=== PATIENT | female | born 1970 | race Caucasian/White ===

== ENCOUNTER 2016-11-16 10:50 | Emergency (ER) | payer SELFPAY ==
[~2016-11-16] VITALS: Ht 170.2 cm; Wt 75.0 kg
[~2016-11-16 10:50] MED LIST: AMOX500T PO; MMW SS
[2016-11-16 10:51] VITALS: BP 113/79; PULSE 140; RESP 24; TEMP 98.1; O2SAT 99
[2016-11-16 11:15] VITALS: PULSE 105
[2016-11-16] MEDS ORDERED: IBUP800T23 PO (12:04)
[2016-11-16] MEDS ORDERED: CEPH500C PO (12:04)
[2016-11-16] MEDS ORDERED: BACT800T5 PO (12:04)
--- NOTE | 2016-11-16 12:08 | PD ---
HPI Chief Complaint: Lump, Cyst, Hernia Time Seen by Provider: 12:02 Travel History International Travel<30 days: No Contact w/Intl Traveler<30days: No Traveled to known affect area: No History of Present Illness HPI 46-year-old female presents emergency Department with complaint of painful lump to her right labia. Last 3-4 days. States she shaved with an old razor and started developing pimple-like bumps to the right labia. Thought they were ingrown hairs and tried opening them up and removing the hair with worsening now to the area. Has taken Advil with no relief of symptoms. Has not taken any other medications or try neither treatments to alleviate her symptoms. Denies fever, vomiting. Denies vaginal discharge, odor, itch, lesions. Denies dysuria. No known allergies. Has no other medical completes. No other modifying factors or associated signs and symptoms. PFSH Past Medical History Hx Anticoagulant Therapy: No Cardiovascular Problems: No Chemotherapy: No Cerebrovascular Accident: No Diabetes: No Diminished Hearing: No Respiratory: No Immunizations Current: No ?: Not LMP: OCTOBER 2016 : 6 Para: 4 Miscarriage: 2 Ovarian Cysts: Yes Dilation and Curettage (D&C): Yes Past Surgical History Gynecologic Surgery: Yes (CYST REMOVAL RIGHT OVARY) Social History Alcohol Use: No Tobacco Use: Yes Substance Use: No Allergies-Medications (Allergen,Severity, Reaction): Coded Allergies: No Known Allergies (Unverified , 08/10/15) Reported Meds & Prescriptions Reported Meds & Active Scripts Active Lortab (Hydrocodone-Acetaminophen) 5-325 Mg Tab 1 Tab PO Q4H PRN Ibuprofen 800 Mg Tab 800 Mg PO Q6HR PRN Cephalexin 500 Mg Cap 500 Mg PO Q6H 10 Days Bactrim DS (Sulfamethoxazole-Trimethoprim) 800-160 Mg Tab 1 Tab PO BID 10 Days Magic Mouthwash-Diphenhy Formula (Lidocaine/Diphenhydr/Alum/Mg/Simeth) Ml 5 Ml SS Q3H PRN MAGIC MOUTHWASH=MIX 1/3 VISCOUS LIDOCAINE(80 ML), 1/3 MAALOX(80 ML),AND 1/3 BENADRYL(80 ML) TO EQUAL 240 ML TOTAL VOLUME. Amoxicillin 500 Mg Cap 500 Mg PO BID 10 Days Review of Systems Except as stated in HPI: all other systems reviewed are Neg Physical Exam Narrative GENERAL: Well-nourished, well-developed female patient, in no acute distress; afebrile, nontoxic-appearing SKIN: There are 3 indurated areas to the right labia which measures about 1-2 cm in diameter. It is fluctuant but there is no pointing or drainage. There is a zone of inflammation around it but no lymphangitis. HEAD: Atraumatic. Normocephalic. EYES: Pupils equal and round. No scleral icterus. No injection or drainage. ENT: Mucosa pink and moist. Airway patent. NECK: Trachea midline. CARDIOVASCULAR: Regular rate. RESPIRATORY: No accessory muscle use. GASTROINTESTINAL: Flat. MUSCULOSKELETAL: No obvious deformities. No clubbing. No cyanosis. No edema. NEUROLOGICAL: Awake and alert. Oriented 3. No obvious cranial nerve deficits. Motor grossly within normal limits. Normal speech. PSYCHIATRIC: Appropriate mood and affect; insight and judgment normal. Data Data Last Documented VS Vital Signs Date Time Temp Pulse Resp B/P Pulse Ox O2 Delivery O2 Flow Rate FiO2 11/16/16 11:15 105 11/16/16 10:51 98.1 24 113/79 99 Room Air Orders Wound Culture And Gram Stain (11/16/16 12:01) Lidocaine 1% Inj (50 Ml) (Xylocaine 1% I (11/16/16 12:15) Oxycodone-Acetamin 5-325 Mg (Percocet (11/16/16 13:15) MDM Medical Decision Making Medical Screen Exam Complete: Yes Emergency Medical Condition: Yes Medical Record Reviewed: Yes Differential Diagnosis Abscess, folliculitis, cellulitis Narrative Course 46-year-old female with 3 small abscesses to her right genital labia. Denies vaginal or urinary symptoms. Denies fever, vomiting. Patient is afebrile and nontoxic-appearing. See my procedure note for incision and drainage of abscess. Lortab administered in the ER. Ibuprofen, Lortab, Keflex, Bactrim prescribed for home. Patient verbalizes understanding and agreement with treatment plan. Patient is medically cleared and stable for discharge. Discussed reasons to return to the emergency department. Instructed patient to follow up with primary care provider. Patient agrees with treatment plan. The patients vital signs are stable and the patient is stable for outpatient follow- up and treatment. Patient discharged home, stable and in no acute distress. Procedures Procedure Narrative INCISION AND DRAINAGE OF ABSCESS: The area was prepped and was sterilely draped. A subcutaneous wheal of 1 % Xylocaine with a total number 0.5 mL was used to anesthetize the areas properly. A number 11 scalpel was used to make a less than 0.5 cm incision across the area of the abscess. The abscess was drained, complex loculations were broken down, and irrigated with normal saline. Cultures were obtained. Sterile dressing applied. Diagnosis Primary Impression: Abscess of right genital labia Referrals: Primary Care Physician Patient Instructions: Abscess (ED), Abscess Follow-up (ED), Abscess Incision and Drainage (ED), General Instructions Departure Forms: Tests/Procedures, Work Release Enter return to work date: November 20, 2016 Additional Instructions: Complete full course of antibiotics Warm compresses to the affected area Keep area clean and dry Ibuprofen or Tylenol as directed and as needed for pain and inflammation Follow-up with primary care provider Return to emergency department immediately with worsening of symptoms Med/Other Pt SpecificInfo: Prescription(s) given Scripts Hydrocodone-Acetaminophen (Lortab)5-325 Mg Tab1 Tab PO Q4H PRN (PAIN GREATER THAN 5) #20 TAB Ref 0 Prov:Padmini Ellsworth MD 11/16/16 Ibuprofen 800 Mg Sab455 Mg PO Q6HR PRN (PAIN) #30 TAB Ref 0 Prov:Beckie Rosales 11/16/16 Cephalexin 500 Mg Xid141 Mg PO Q6H 10 Days Ref 0 Prov:Beckie Rosales 11/16/16 Sulfamethoxazole-Trimethoprim (Bactrim DS)800-160 Mg Tab1 Tab PO BID 10 Days Ref 0 Prov:Beckie Rosales 11/16/16 Disposition: 01 DISCHARGE HOME Condition: Stable Beckie Rosales November 16, 2016 12:08
[2016-11-16] MEDS ORDERED: LIDOCAINE HCL 1% 50 ML VIAL INFIL ONE (12:15)
[2016-11-16] MEDS ORDERED: HYDR-3533 PO (13:02)
[2016-11-16] MEDS ORDERED: oxyCODONE/ACETAMINOPHEN 5 MG/325 MG TAB PO ONE (13:15)
== END 2016-11-16 13:10 | disposition home or self-care (01) ==
LOC: NEPD 10:50
DX: N76.4 Abscess of vulva (principal); B95.62 Methicillin resistant Staphylococcus aureus infection as the cause of diseases classified elsewhere
CPT/HCPCS: 56405; 86403; 87070; 87186

== ENCOUNTER 2017-05-04 13:56 | Emergency (ER) | payer OTHER ==
[~2017-05-04] VITALS: Ht 170.2 cm; Wt 65.0 kg
[~2017-05-04 13:56] MED LIST changes: +BACT800T5 PO; +CEPH500C PO; +HYDR-3533 PO; +IBUP1TAB7 PO
[2017-05-04 13:58] VITALS: BP 166/94; PULSE 106; RESP 14; TEMP 98.2; O2SAT 98
[2017-05-04] MEDS ORDERED: ORPHENADRINE INJ 60 MG/2 ML AMP IM ONE (14:45)
[2017-05-04] MEDS ORDERED: KETOROLAC TROMETHAMINE 60 MG/2 ML (IM) VIAL IM ONE (14:45)
[2017-05-04] MEDS ORDERED: CYCL7.5T33 PO (15:06)
[2017-05-04] MEDS ORDERED: MEDI220T PO (15:06)
--- NOTE | 2017-05-04 15:10 | PD ---
HPI . Left-sided lumbar sacral pain Chief Complaint: Back/ Neck Pain or Injury Time Seen by Provider: 14:26 Travel History International Travel<30 days: No Contact w/Intl Traveler<30days: No Traveled to known affect area: No History of Present Illness HPI 46-year-old female presents emergency department for evaluation of left-sided lumbosacral pain 3 days. Patient denies any injuries, falls, traumas to the area. Patient denies any incontinence of urine or stool, patient denies any fevers or chills. Patient denies any saddle numbness. Patient states the pain radiates down the posterior aspect of the left and radiates up to the left shoulder blade. Patient denies any major medical history. The only medication patient takes daily is Adderall. 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 Amoxicillin 500 Mg Cap 500 Mg PO BID 10 Days Review of Systems Except as stated in HPI: all other systems reviewed are Neg Physical Exam Narrative GENERAL: Well-nourished, well-developed 46-year-old female patient in no acute distress. Nontoxic appearing. SKIN: Focused skin assessment warm/dry. HEAD: Normocephalic. Atraumatic. EYES: No scleral icterus. No injection or drainage. NECK: Supple, trachea midline. No JVD or lymphadenopathy. CARDIOVASCULAR: Regular rate and rhythm without murmurs, gallops, or rubs. RESPIRATORY: Breath sounds equal bilaterally. No accessory muscle use. GASTROINTESTINAL: Abdomen soft, non-tender, nondistended. MUSCULOSKELETAL: Full range of motion in all extremities. No obvious deformity , ecchymosis, erythema, cyanosis, or edema. BACK: Left-sided lumbosacral tenderness to palpation. No without obvious deformity, ecchymosis, erythema, cyanosis. No CVA tenderness. Data Data Last Documented VS Vital Signs Date Time Temp Pulse Resp B/P (MAP) Pulse Ox O2 Delivery O2 Flow Rate FiO2 05/04/17 13:58 98.2 106 14 166/94 (118) 98 Orders Orders Ketorolac Inj (Toradol Inj) (05/04/17 14:45) Orphenadrine Inj (Norflex Inj) (05/04/17 14:45) MDM Medical Decision Making Medical Screen Exam Complete: Yes Emergency Medical Condition: Yes Differential Diagnosis Differential diagnoses include but not limited to muscular strain, muscular strain, sciatica, ruled out cauda equina Narrative Course 46-year-old female presents emergency department for evaluation of left-sided lower back pain that radiates down the posterior aspect of the left leg. Patient denies any fever, chills, IV drug use, nausea, vomiting, diarrhea, saddle numbness. The left leg is neurovascularly intact. Patient denies any injuries, falls, traumas. Due to the vital sign review, mechanism of injury on physical exam, clinical presentation it is not deemed clinically appropriate at this time to obtain radiological imaging. Patient treated with an IM injection of Norflex and Toradol and discharged home with prescription for naproxen and Flexeril. Patient instructed that if Symptoms persist to return to the emergency department for further evaluation. Patient thankful for care and requests a work note to allow time for her body to rest. Diagnosis Primary Impression: Back pain Qualified Codes: M54.42 - Lumbago with sciatica, left side Referrals: Primary Care Physician Patient Instructions: Back Pain (ED), General Instructions Departure Forms: Tests/Procedures, Work Release Enter return to work date: May 07, 2017 Additional Instructions: Please return to emergency department if your symptoms return or worsen. Follow up with your primary care provider. Take medications as prescribed. May use ice packs or heating pads to help reduce pain. Med/Other Pt SpecificInfo: Prescription(s) given Scripts Cyclobenzaprine (Flexeril) 7.5 Mg Tab 7.5 MG PO TID for Muscle Spasm, #14 TAB 0 Refills Prov: Sheila Tamayo 05/04/17 Naproxen Sodium (Naproxen Sodium) 220 Mg Tab 440 MG PO BID Y for Pain Management, #14 TAB 0 Refills Prov: Sheila Tamayo 05/04/17 Disposition: 01 DISCHARGE HOME Condition: Stable Sheila Tamayo May 04, 2017 15:10
== END 2017-05-04 15:17 | disposition home or self-care (01) ==
LOC: NEPK 13:56
DX: M54.5 Low back pain (principal); Z79.899 Other long term (current) drug therapy
CPT/HCPCS: 96372; 99284; J1885; J2360